=== PATIENT | female | born 1950 | race Caucasian/White ===

== ENCOUNTER → 2023-11-25 11:51 | Outpatient (REF) | payer MEDICARE, BC, SELFPAY ==
[2023-11-25 13:27] LABS: % Basophils 1.3 % (0-2); % Eosinophils 3.8 % (0-6); % Immature Granulocytes 0.3 % (0-0.5); % Lymphocytes 22.8 % (20.5-51.1); % Monocytes 8.9 % (1.7-9.3); % Neutrophils 62.9 % (42.2-75.2); Absolute Basophils 0.1 10^3/uL (0-0.2); Absolute Eosinophils 0.3 10^3/uL (0-0.7); Absolute Lymphocytes 1.6 10^3/uL (1.2-3.4); Absolute Monocytes 0.6 10^3/uL (0.1-0.6); Absolute Neutrophils 4.5 10^3/uL (1.4-6.5); Hematocrit 36.6 % (37.0-47.0); Hemoglobin 12.8 g/dL (12.0-16.0); Mean Corpuscular Hgb 30.2 pg (27.0-31.0); Mean Corpuscular Volume 86.3 fL (81.0-99.0); Mean Platelet Volume 9.4 fL (7.4-10.4); Nucleated Red Blood Cells % 0 %; Platelet Count 310 10^3/uL (130-400); Red Blood Cell Count 4.24 10^6/uL (4.20-5.40); Red Cell Dist. Width 11.8 % (11.5-14.5); White Blood Cell Count 7.1 10^3/uL (4.8-10.8)
[2023-11-25 15:39] LABS: ALT (SGPT) 16 U/L (0-35); AST (SGOT) 26 U/L (14-36); Albumin 4.7 g/dl (3.5-5.0); Alkaline Phosphatase 75 U/L (38-126); Blood Urea Nitrogen 13 mg/dl (7-17); Calcium 9.1 mg/dl (8.4-10.2); Carbon Dioxide 28 mmol/L (22-30); Chloride 96 mmol/L (98-107); Glucose 84 mg/dl (70-99); Potassium 4.7 mmol/L (3.5-5.1); Sodium 136 mmol/L (135-145); Total Bilirubin 0.6 mg/dl (0.2-1.3); Total Protein 7.1 g/dl (6.3-8.2); eGFR > 60.00
[2023-11-25 20:00] LABS: CEA 1.54 ng/ml
== END ==
LOC: RAD 11:51
PROVIDERS: ATTENDING PHYSICIAN Internal Medicine Hematology & Oncology; FAMILY PHYSICIAN Family Medicine
DX: C20 Malignant neoplasm of rectum (principal); C18.0 Malignant neoplasm of cecum
CPT/HCPCS: 36415; 80053; 82378; 85025

== ENCOUNTER → 2023-11-27 11:50 | Outpatient (REF) | payer MEDICARE, BC, SELFPAY | LOC: RAD 11:50 | PROVIDERS: ATTENDING PHYSICIAN Internal Medicine Hematology & Oncology; FAMILY PHYSICIAN Family Medicine | DX: C20 Malignant neoplasm of rectum (principal); C18.9 Malignant neoplasm of colon, unspecified | CPT/HCPCS: 71260; 74177; Q9967 ==

== ENCOUNTER 2025-01-11 21:09 | Observation (INO) | payer MEDICARE, BC, SELFPAY ==
[2025-01-11] VITALS (7 sets, daily range): BP systolic 90–170; BP diastolic 66–106; BMI 24.6; BMI 24.9
[2025-01-11 18:28] LABS: Glucose - Point of Care 134 mg/dl (70-99)
--- NOTE | 2025-01-11 18:47 | ED.CVA ---
History of Present Illness
General
Chief Complaint: CVA/TIA Symptoms
Source: patient
Time Seen by Provider: 01/11/25 18:30
Onset of Stroke Symptoms
Onset of symptoms known: Yes
Date of onset of symptoms: 01/11/25
Time of onset of symptoms: 14:00
History of Present Illness
History of Present Illness:
74-year-old female presents to the emergency room complaining of intermittent dizziness/lightheaded/spinning sensation, slurred speech and word finding difficulties at times. She feels like the right side of her face does not feel right. Patient
also noted that when she was walking she felt she was leaning to the right. Mild headache. Symptoms have been waxing and waning since 2 PM. Patient does not take any oral anticoagulants.
Phy Exam
Physical Exam
Physical Exam:
General: Awake, Alert, Oriented X3. No acute distress.
Vitals: unremarkable
Head: Atraumatic
Eyes: Pupils equal, EOMI
Throat: Airway intact, no exudates
Neck: Trachea midline
Lungs: Clear and equal b/l
Heart: Regular rate, no murmurs
Abd: Soft, Nontender, No pulsatile mass
Neuro: Cranial nerves intact, muscle strength equal bilaterally, cerebellar exam normal
Skin: Warm, dry, no rash
Extremities: pulses equal b/l, no edema
Course
Orders/Labs/Results
Orders:
Orders
01/11/25 18:22
Electrocardiogram (*1) Urgent
Reason for Study: Vertigo / Dizzy
EKG- Treatment ONCE
01/11/25 18:46
CT Head & Neck Angio W/wo IV Urgent
Comment:
Reason For Exam: intermittent ataxia, slurred speech
Cardiac Monitoring- Treatment ONCE
01/11/25 18:54
Complete Blood Count/With Diff Urgent
Comprehensive Metabolic Panel Urgent
01/11/25 20:12
Meclizine [Antivert] 25 mg PO NOW STA
Abnormal Lab Results
01/11/25 01/11/25
18:27 18:54
Sodium 134 L mmol/L
(135-145)
Creatinine 0.5 L mg/dL
(0.6-1.0)
Glucose 124 H mg/dl
(70-99)
Albumin 5.2 H g/dl
(3.5-5.0)
POC Glucose 134 H mg/dl
(70-99)
01/11/25 18:54
01/11/25 18:54
Vital Signs
Initial and Last Documented VS:
Initial Vital Signs
Temp Pulse Resp BP Pulse Ox
98.4 F 69 16 124/82 98
01/11/25 18:14 01/11/25 18:14 01/11/25 18:14 01/11/25 18:14 01/11/25 18:14
Last Documented Vital Signs
Temp Pulse Resp BP Pulse Ox
98.4 F 69 24 170/75 98
01/11/25 18:14 01/11/25 18:14 01/11/25 18:38 01/11/25 18:38 01/11/25 18:50
MDM/Problems Addressed
Differential Diagnosis Includes:
Peripheral vertigo, central vertigo from TIA, CVA
MDM/Problems Addressed:
Patient presents with various neurologic symptoms. Her exam for me is not particular abnormal though subjectively she feels abnormal. Hallpike maneuver performed which does not reproduce her symptoms. Patient likely suffering from peripheral
vertigo though she has other neurologic findings such as facial paresthesias, speech slurring which waxes and wanes and makes it difficult to be confident this is peripheral. Will hospitalize for further evaluation such as MRI, neuro consult
*Pulse Oximetry
SaO2: 98
Oxygen Mode of Delivery: Room air
Patient hypoxic: no
*EKG
Interpretation: abnormal
Heart Rate: 59
Rate: bradycardiac
Rhythm: sinus
[place]: normal axis
Interval: normal interval
QRS Pattern: normal QRS
Ischemia: no ischemia
*Industrial Cleaning Technician Interpretation
Rate: bradycardiac
Interpretation: abnormal
Heart Rate: 59
Rhythm: sinus
*Critical Care Note
Total Time (30-74mins, 75-104mins- exclusive of procedures): Not Applicable
ED Attending Note
-
Portions of this chart may have been created with voice recognition software.� Occasional wrong word or��sound alike� substitutions may have occurred due to the inherent limitations of voice recognition software.
Discharge Plan
Departure
Patient Disposition: Admit
Date of Disposition: 01/11/25
Time of Disposition: 20:14
Admit to: Telemetry
Presentation/result/management discussed w/ accepting MD/DO: Hospitalist
Condition: Fair
Discharge Problem:
Vertigo, Brain TIA
Prescriptions:
No Action
pravastatin 20 MG tablet
20 mg PO QPM
levothyroxine 88 mcg Tablet
88 mcg PO DAILY
Referrals:
Shankar Raza MD [Family Provider, Family Practice]
Interventions
Interventions:
*Risk Screen - Suicide Last Done: 01/11/25 18:45
*General Assessment Last Done: 01/11/25 18:45
*Neglect/Abuse Screening Last Done: 01/11/25 18:45
*ED- Fall Risk Assessment Last Done: 01/11/25 18:45
*ED COVID-19 Vaccine History Last Done: 01/11/25 18:45
*ED Influenza Vaccine History Last Done: 01/11/25 18:45
ED- Pulmonary Assessment Last Done: 01/11/25 18:45
ED- Neurological Assessment Last Done: 01/11/25 18:45
ED- Cardiac Assessment Last Done: 01/11/25 18:45
ED Swallowing Screen Last Done: 01/11/25 18:45
Discharge Date and Time
Print Language: KINYARWANDA
[2025-01-11 19:19] LABS: Hematocrit 41.8 % (37.0-47.0); Hemoglobin 13.9 g/dL (12.0-16.0); Mean Corp Hgb Conc. 33.3 g/dL (33.0-37.0); Mean Corpuscular Volume 89.1 fL (81.0-99.0); Nucleated Red Blood Cells % 0 %; Platelet Count 317 10^3/uL (130-400); Red Cell Dist. Width 11.9 % (11.5-14.5)
[2025-01-11 19:36] LABS: ALT (SGPT) 19 U/L (0-35); AST (SGOT) 29 U/L (14-36); Albumin 5.2 g/dl (3.5-5.0); Alkaline Phosphatase 74 U/L (38-126); Blood Urea Nitrogen 13 mg/dl (7-17); Calcium 8.9 mg/dl (8.4-10.2); Carbon Dioxide 27 mmol/L (22-30); Chloride 99 mmol/L (98-107); Estimated Creatinine Clearance 73 ml/min; Glucose 124 mg/dl (70-99); Potassium 4.6 mmol/L (3.5-5.1); Sodium 134 mmol/L (135-145); Total Protein 8.1 g/dl (6.3-8.2); eGFR > 60.00
[2025-01-11] MEDS: ANTIVERT 25 MG PO (20:21)
--- NOTE | 2025-01-11 20:22 | HPS.HSE ---
Family Physician
-
Family Physician: Shankar Raza
Chief Complaint
-
intermittent dizziness/lightheaded/spinning sensation and word finding difficulties at times
History of Present Illness
Patient is a 74-year-old female with past medical history significant for hyperlipidemia, hypothyroidism and Hx colon cancer who presented to [facility] ED for evaluation of intermittent dizziness/lightheaded/spinning sensation and word finding
difficulties at times. Patient reports she was helping this afternoon with screens and she became dizzy and collapsed to floor. Denies any injuries or head strike. She reports that it felt like room was spinning, had a difficult time
ambulating and had difficulty finding words she wanted to say. She laid down on couch without improvement and daughter suggested ED for evaluation. She does report odd right sided facial sensation where she felt face was dropping but it did not have
a physical droop on inspection by family at time of incident. Denies any recent illness, fever, chills, cough, shortness of breath, chest pain, palpitations, nausea, vomiting, constipation, diarrhea or urinary symptoms.
Medical History
Past Medical History
Past Medical History: Reports Other
Additional Past Medical History:
hyperlipidemia
hypothyroidism
Hx colon cancer
Hx Lyme disease
Past Surgical History: Reports Other
Additional Past Surgical History:
HYSTERECTOMY 1986
Colonoscopy 10/23/18 Dr. Rodriguez
Flexible Sigmoidoscopy Dr. Schmidt 11/10/18
robotic low anterior resection takedown of splenic flexsure 12/25/18
Port placement 01/30/19
b/l carpal tunnel release
Social History
Tobacco: Former Smoker (quit 2004)
Alcohol: None
Personal:
Living: With Family
Employment: Retired
Family History
Family History: Other (Mother: DM)
Allergies / Home Medications
Allergies reflects when Allergies were last updated in [facility].
Home Medications with original date entered in [facility]
Allergy/Medication List:
Allergies
Allergy/AdvReac Type Severity Reaction Status Date / Time
No Known Allergies Allergy Verified 01/11/25 18:22
Home Medications
pravastatin 20 mg tablet 20 mg PO HS 12/09/18
levothyroxine 88 mcg tablet 88 mcg PO DAILY 01/11/25
Review of Systems
-
History Source: Patient and Family
Constitutional: Denies Fever or Chills
EENT: Denies Sore Throat
Respiratory: Denies Cough, Hemoptysis or Trouble Breathing
Cardiac: Denies Chest Pain, Diaphoresis, Palpitations or Syncope
Abdomen/GI: Denies Abdominal Pain, Nausea, Vomiting or Diarrhea
: Denies Dysuria, Frequency or Urgency
Musculoskeletal: Denies Joint Pain
Skin: Denies Rash
Neurological: Reports Dizzy, Headache, Weakness and Other (odd sensation to right face, felt like it was drooping )
Physical Exam
Vital Signs
Vital Signs
Temp Pulse Resp BP Pulse Ox
98.4 F 69 24 170/75 98
01/11/25 18:14 01/11/25 18:14 01/11/25 18:38 01/11/25 18:38 01/11/25 18:50
Physical Exam
General: Well Developed, Well Nourished, No Apparent Distress, Comfortable and Conversant
HEENT: NormoCephalic, Moist mucous membranes and Nose Appears Normal
Respiratory: Clear and Non Labored Respirations; No Wheezes, Rales, Rhonchi or Crackles
Cardiac: S1/S2 and Regular Rhythm; No Murmur, Rub, Gallop or Peripheral Edema
GI: Soft, Non Tender, Non Distended and Normal Bowel Sounds
Musculoskeletal: No Clubbing, No Cyanosis and No Edema
Skin: Warm and IV/Catheter Site
Neuro: Awake, AO x 3, No Motor Deficits, Nonfocal/grossly intact, Cranial Nerves Intact (II-XII) and No Sensory Deficits; No Slurred Speech or Facial Droop
Hematologic/Lymphatic: No Lymphadenopathy
Psych: Calm and Intact Judgment/Insight
Laboratory Results
-
01/11/25 18:54
01/11/25 18:54
Laboratory Results
Total Bilirubin 0.5 mg/dl (0.2-1.3) 01/11/25 18:54
AST 29 U/L (14-36) 01/11/25 18:54
ALT 19 U/L (0-35) 01/11/25 18:54
Alkaline Phosphatase 74 U/L (38-126) 01/11/25 18:54
Data Reviewed
-
CT Scan: Report Reviewed by me (Head/Neck CTA: No significant vascular occlusion, aneurysm or dissection.)
Medical Tests (Nuc Med, Echo, EKG etc): Report Reviewed by me (EKG: SINUS BRADYCARDIA)
Lab Data: Labs Reviewed by me
Impression/Plan
-
IMPRESSION/PLAN:
#intermittent dizziness/lightheaded/spinning sensation and word finding difficulties at times 2/2 CVA/TIA vs. vertigo vs. infectious process
Head/Neck CTA: No significant vascular occlusion, aneurysm or dissection.
EKG: SINUS BRADYCARDIA
- Admit to telemetry for observation
- Consult Neurology
- MRI in morning
- NIH and neuro checks per protocol
- start aspirin
- check Lipids, TSH and A1c
#hyperlipidemia
- continue pravastatin
#hypothyroidism
- continue levothyroxine
#Hx colon cancer
s/p chemo and colon resection 5 years ago
Code status: full code
DVT prophylaxis: SCDs
--- NOTE | 2025-01-11 20:49 | W.PN.UPDATE ---
Update Note
Progress Note Update
This note serves as an addendum to the H&P by product development specialist MELI�
Nayana Tovar
HPI
74F HX DLP ( Atorvastatin ) Hypothyroid ( LT4 ) seen at ER with waxing and waning following symptoms for since 2 PM.
- complaining of intermittent dizziness/lightheaded/spinning sensation, slurred speech and word finding difficulties at times.
- feels like the right side of her face does not feel right.
- noted that when she was walking she felt she was leaning to the right.
- Mild headache. Patient does not take any oral anticoagulants.
Relevant VS
01/11/25
18:14 01/11/25
18:38
Temp 98.4 F
Pulse 69
Blood pressure 124/82 170/75
SaO2 98
Oxygen Mode of Delivery Room air
PE
Gen: NAD
HEENT: symmetric face , symmetric tongue protrusion, nl speech ( vol, speed and articulation)
Neck: supple
Lungs: CTA :
Cor: RRR S1 S2
Abdomen:�soft
SHEET METAL ASSEMBLER: AAO3 , NFND
MS: no edema
01/11/25
18:54
WBC 7.9
Hgb 13.9
Sodium 134 L
Potassium 4.6
Creatinine 0.5 L
eGFR > 60.00
NO PRIOR Last hospitalist admission:
ASSESSMENT & PLAN
Evaluation for TIA/ CVA especially Lt sided brain stem ( especially edward or medulla ) of PAC territory
Transient Symptoms : waxing and waning intermittent dizziness, R facial paresthesia slurred speech
- NEG HCT. NEG H & N CTA
- start ASA loading and daily baby ASA
- Brain MRI
- check LDL and A1 C
- Neuro consult
- PT consult
DLP
- c/w Pravastatin pending Brain MRI and LDL
Hypothyroidism
- check TSH
- c/w CHIEF DISPATCHER LT4 88 mcg daily
DVT Px: SCD
Full code
OBS TLM
[2025-01-11] MEDS: ASPIRIN 325 MG PO (21:15)
--- NOTE | 2025-01-11 22:09 | PTCARENOTE ---
Pt arrived to room 436-02. Pt ambulated from stretcher to bed with standby assistance, no c/o vertigo. Pt AAOx3, VSS. Pt oriented to room, call talavera placed within reach. Bed alarm in place.
[2025-01-11] MEDS: PRAVACHOL 20 MG PO (22:35)
[2025-01-12 03:12] VITALS: BP 92/50
[2025-01-12] MEDS: SYNTHROID 88 MCG PO (06:00)
[2025-01-12] MEDS: LOW STRENGTH ASPIRIN 81 MG PO (07:13)
[2025-01-12 07:52] LABS: HDL Cholesterol 67 mg/dl; LDL Cholesterol, Calculated 74 mg/dl; Very Low Density Lipoprotein 21 mg/dl (0-30)
[2025-01-12 08:25] VITALS: BP 110/52
[2025-01-12 08:28] LABS: TSH 3.30 uIU/ml (0.47-4.68)
[2025-01-12 09:42] LABS: Glycohemoglobin (HgbA1c) 6.3 % (4.0-5.6)
[2025-01-12 11:00] VITALS: BP 115/56
--- NOTE | 2025-01-12 13:58 | W.PN.HOSP.TC ---
Today's Communication/Plan
-
Await MRI of the brain.
Continue with aspirin and statins.
Assessment / Plan
Assessment / Plan
Transient Symptoms : waxing and waning intermittent dizziness, R facial paresthesia slurred speech
- NEG HCT. NEG H & N CTA
- start ASA loading and daily baby ASA
- Brain MRI pending
- Neuro consult pending
- PT consult
- Consult speech
Known prediabetic-hemoglobin A1c 6.3-continue with lifestyle modification and if she is positive for stroke to consider metformin-stroke team to secondary microvascular disease
DLP
- c/w Pravastatin
- Increase the dose of pravastatin to 40 mg if she rules in for stroke.
Hypothyroidism
- check TSH
- c/w LEGAL DOCUMENT ASSISTANT LT4 88 mcg daily
DVT Px: SCD
Full code
OBS TLM
Anticipated Discharge: Within 24 hours
Subjective/Interval History
-
Date of Service: January 12, 2025
Not vertiginous now. Some head discomfort.
Still feels a bit funny in right side of face .Lips dont feels alright .
Daughter at bedside sees some fluctuations in her speech and symptoms.
Objective Data
-
Vital Signs:
Vital Signs
Temp Pulse Resp BP Pulse Ox
97.2 F 57 18 115/56 96
01/12/25 11:00 01/12/25 11:00 01/12/25 11:00 01/12/25 11:00 01/12/25 11:00
Physical Exam
-
General: No Apparent Distress
Respiratory: Clear to Auscultation and Non Labored Respirations; Negative Accessory Resp Muscle Use
Cardiac: Regular Rhythm and S1/S2
Neuro: AO x 3 and No Motor Deficits; Negative Slurred Speech or Facial Droop
Psych: Calm; Negative Confused or Agitated
Data Reviewed
-
Labs: Labs Reviewed by
[2025-01-12 14:42] VITALS: BP 118/53
--- NOTE | 2025-01-12 15:56 | CM ---
medical services manager reviewed patient's chart and patient was admitted under OBS, SMITH letter completed and placed on chart, patient lives with spouse in a 2 story home, is independent with adl's and ambulation, no dme, patient drives.
PCP: DR. Raza
Pharmacy: [facility] in [place].
[2025-01-12 19:54] VITALS: BP 127/56
--- NOTE | 2025-01-12 20:56 | CON.NEURO4 ---
Consultation - Neurology 4
-
CONSULTING PHYSICIAN: Cristobal Noyola MD
REFERRING PHYSICIAN: Yosef Hernández MD
DICTATED BY: Cristobal Noyola MD
DATE/TIME OF REQUEST: 01/12/2025
DATE/TIME OF CONSULTATION: 01/12/2025
Reason for Consultation: Dizziness and word finding difficulty
Assessment and Plan:
The patient is a 74 years old female with a past medical history significant for hyperlipidemia, hypothyroidism and colon cancer, who presented for evaluation of dizziness along with some word finding difficulties. The patient says that she had a
spinning sensation also. Speech is improved significantly. The symptoms started at around 3 PM yesterday and they were witnessed by the patient's daughter who was present at the bedside to provide history. At this time the patient says that her
speech is back to baseline and she denies any dizziness.
At this time the patient's neurologic examination is normal.
The brain MRI did not show evidence of acute infarct or intracranial hemorrhage.
The CTA of head and neck did not show occlusion, aneurysm or dissection.
The patient does not appear to have had a stroke and her dizziness along with the word finding difficulty have resolved. She may have had an episode of transient ischemic attack. The plan is to keep the patient on aspirin 81 mg daily and Plavix 75
mg daily for 3 weeks, after which the Plavix will be stopped and she will stay on aspirin. She will also stay on pravastatin 20 mg daily.
The plan is to monitor orthostatic blood pressure changes.
Will sign off. Please call if you have any question.
History of Present Illness:
The patient is a 74 years old female with a past medical history significant for hyperlipidemia, hypothyroidism and colon cancer, who presented for evaluation of dizziness along with some word finding difficulties. The patient says that she had a
spinning sensation also. Speech is improved significantly. The symptoms started at around 3 PM yesterday and they were witnessed by the patient's daughter who was present at the bedside to provide history. At this time the patient says that her
speech is back to baseline and she denies any dizziness.
The brain MRI did not show evidence of acute infarct or intracranial hemorrhage.
The CTA of head and neck did not show occlusion, aneurysm or dissection.
Past Medical History: Hyperlipidemia, hypothyroidism and colon cancer,
Review of Systems:
The 10 point review systems was negative aside from as given in the history of present illness.
Neurologic Examination:
The patient is alert and oriented x 3
The speech is clear
The cranial nerves II to XII are grossly intact
The motor strength is 5/5 bilaterally in the upper and lower extremities
The sensations are grossly intact
The cerebellar exam does not show a limb ataxia
Medications
-
Active Medications
Generic Name Dose Route Start Last Admin
Trade Name Freq PRN Reason Stop Dose Admin
Acetaminophen 650 mg 01/11/25 21:45
Acetaminophen 325 Mg Tablet PO 02/08/25 21:44
Q4HPRN PRN
mild pain/[place]SON/temp> 100.4F
Aspirin 81 mg 01/12/25 08:00 01/12/25 07:13
Aspirin 81 Mg Chewable Tablet PO 02/09/25 07:59 81 mg
DAILY LINWOOD Administration
Levothyroxine Sodium 88 mcg 01/12/25 06:00 01/12/25 06:00
Levothyroxine 88 Mcg Tablet PO 02/09/25 05:59 88 mcg
DAILY @ 0600 LINWOOD Administration
Pravastatin Sodium 20 mg 01/11/25 22:00 01/11/25 22:35
Pravastatin 20 Mg Tablet PO 02/08/25 21:59 20 mg
HS LINWOOD Administration
Home Medications
�Medication �Instructions �Recorded
pravastatin 20 mg tablet 20 mg PO HS High Cholesterol 12/09/18
levothyroxine 88 mcg tablet 88 mcg PO DAILY Thyroid 01/11/25
Vital Signs and Labs
-
Vital Signs and Labs:
Vital Signs
Temp Pulse Resp BP Pulse Ox
36.6 C 70 18 127/56 98
01/12/25 19:54 01/12/25 19:54 01/12/25 19:54 01/12/25 19:54 01/12/25 19:54
Lab Results
01/11/25 18:54
01/11/25 18:54
Sodium 134 mmol/L (135-145) L 01/11/25 18:54
Potassium 4.6 mmol/L (3.5-5.1) 01/11/25 18:54
BUN 13 mg/dl (7-17) 01/11/25 18:54
Glucose 124 mg/dl (70-99) H 01/11/25 18:54
Calcium 8.9 mg/dl (8.4-10.2) 01/11/25 18:54
LDL Cholesterol, Calc 74 mg/dl 01/12/25 06:58
[2025-01-12] MEDS: PRAVACHOL 20 MG PO (22:14)
[2025-01-12 23:25] VITALS: BP 111/57
[2025-01-13 03:00] VITALS: BP 109/63
[2025-01-13 03:14] VITALS: BP 108/55
[2025-01-13 07:00] VITALS: BP 105/61
[2025-01-13] MEDS: SYNTHROID 88 MCG PO (07:34)
[2025-01-13] MEDS: LOW STRENGTH ASPIRIN 81 MG PO (07:34)
[2025-01-13 10:00] VITALS: BP 124/70; PULSE 90; O2SAT 98
[2025-01-13 10:04] VITALS: BP 102/74; PULSE 90; O2SAT 98
[2025-01-13 11:00] VITALS: BP 112/55; BP 123/61
--- NOTE | 2025-01-13 11:40 | PTOTSP ---
Speech Therapy Assessment
Expressive and receptive language skills are grossly within functional limits. However, patient does present with occasional word finding difficulty in conversation and during confrontation tasks, and one instance of difficulty coordinating a
multisyllabic words during reading task. Recommend comprehensive language assessment in outpatient setting especially if symptoms do not improve. Information on outpatient services provided. Continue regular solids and thin liquids. ST will follow
up with expressive language activities.
--- NOTE | 2025-01-13 13:26 | CM ---
Home when stable, no needs.
Plan; Home no needs.
--- NOTE | 2025-01-13 14:23 | W.DCSUMMARY ---
Discharge Summary
Discharge Data
Date of Admission: 01/11/25
Date of Discharge: 01/13/25
-
Pending Results: No
Hospital Course
Primary diagnosis:
Possible TIA
Secondary diagnosis:
Hyperlipidemia
Hypothyroidism
Hospital course:
Patient presented with sudden onset of dizziness with double spinning component to it and some word finding difficulties. She felt unsteady on the feet. No nausea. No limb weakness. No prior history of strokes or TIAs. She was nonfocal
neurologically on presentation. She had an MRI of the brain which did not show any evidence of acute infarct or intracranial hemorrhage. CT of the head and neck did not show any occlusion, narrowing or dissection.
She remained asymptomatic with the resolution of her symptoms. Neurology felt she may have had a TIA. Advised DAPT for 21 days and then aspirin alone. Her LDL was 74 and advised to stay on pravastatin 20 mg daily. She is prediabetic hemoglobin
A1c 6.3 and she says that is better than what it was before.
She was seen by PT, OT and speech therapy and cleared for outpatient therapies.
She had an echo which is pending at the time of discharge dictation.
Today she is without any dizziness or speech impairment. She voices no specific complaints. Afebrile. Pulse was 68. No arrhythmias on the monitor. Blood pressure 123/61. Nonfocal neurologically.
She seems stable for discharge after echocardiogram. If echocardiogram could not be obtained today, will obtain that as an outpatient.
She was skeptical about use of Plavix along with aspirin. Explained the the benefit of DAPT for 21 days post TIA based on literature. She will think about it. Prescription was sent to her pharmacy.
Consultants on board:
Neurology -Cristobal Miller
Discharge Plan
-
Patient Disposition: Home with Home Care
Diet: Low Cholesterol
Activity: As tolerated
Driving Restrictions: No driving for 1 week
Bathing Restrictions: None
Other Services: PT and OT
Referrals:
Shankar Raza MD [Family Provider, [facility]] - in less than 1 week
Prescriptions:
New
aspirin 81 mg Tablet,Chewable
81 mg PO DAILY Qty: 30 0RF
clopidogrel [Plavix] 75 mg tablet
75 mg PO DAILY Qty: 21 0RF
Continued
pravastatin 20 MG tablet
20 mg PO HS
levothyroxine 88 mcg Tablet
88 mcg PO DAILY
Discharge Orders:
Discharge Patient (As Directed); Ordered 01/13/25
Ordered By: Yosef Hernández
Discharge Date and Time
Print Language: BAHRAINI
== END 2025-01-13 16:45 | disposition home or self-care (01) ==
LOC: 4 WEST ACU 21:09
PROVIDERS: Nurse Practitioner Family; ADMITTING PHYSICIAN Internal Medicine; ATTENDING PHYSICIAN Internal Medicine; CONSULT PHYSICIAN Psychiatry & Neurology Neurology; EMERGENCY PHYSICIAN Emergency Medicine; FAMILY PHYSICIAN Family Medicine
DX: R42 Dizziness and giddiness (principal); R47.81 Slurred speech; R20.2 Paresthesia of skin; E78.5 Hyperlipidemia, unspecified; E03.9 Hypothyroidism, unspecified; Z79.899 Other long term (current) drug therapy; Z87.891 Personal history of nicotine dependence; Z92.21 Personal history of antineoplastic chemotherapy; Z85.038 Personal history of other malignant neoplasm of large intestine; Z79.02 Long term (current) use of antithrombotics/antiplatelets; Z79.82 Long term (current) use of aspirin; Z79.890 Hormone replacement therapy; Z90.710 Acquired absence of both cervix and uterus; R73.03 Prediabetes
CPT/HCPCS: 70496; 70498; 70551; 80053; 80061; 82962; 83036; 84443; 85025; 92523; 93005; 93306; 97162; 97166; 99285; G0378; Q9967